=== PATIENT | female | born 1990 | race Caucasian/White ===

== ENCOUNTER 2024-01-29 13:52 | Outpatient (AMB) | payer OTHER, SELFPAY ==
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
[2024-01-29 14:15] VITALS: BP 108/70; PULSE 65; RESP 14; O2SAT 99; BMI 25.8
== END 2024-01-29 15:04 | disposition home or self-care (01) ==
PROVIDERS: PCP Physician Assistant Medical; Visit Provider Physician Assistant Medical
DX: Z00.00 Encounter for general adult medical examination without abnormal findings (principal)

== ENCOUNTER 2024-01-29 14:56 | Outpatient (REF) | payer OTHER, SELFPAY ==
[2024-01-29 18:20] LABS: MANUAL DIFF FLAG NO
[2024-01-29 18:22] LABS: Basophils Absolute Auto 0.1 X10*3/uL (0.0-0.2); Basophils Percent Auto 0.5 % (0-2); Eosinophils Absolute Auto 0.1 X10*3/uL (0.0-0.4); Eosinophils Percent Auto 0.5 % (0-4); Hematocrit 40.6 % (37.0-47.0); Hemoglobin 13.6 g/dl (12.0-16.0); Imm Gran Abs Auto 0.07 X10*3/uL (0.00-0.03); Imm Gran Pct Auto 0.5 % (0.0-0.4); Lymphocytes Absolute Auto 3.2 X10*3/uL (1.2-4.9); Lymphocytes Percent Auto 23.1 % (20-40); Mean Corpuscular HGB Conc 33.5 g/dl (31.0-35.0); Mean Corpuscular Hemoglobin 32.2 pg (27.0-33.0); Mean Corpuscular Volume 96.2 fL (80.0-98.0); Mean Platelet Volume 10.9 fL (9.4-12.3); Monocytes Percent Auto 7.2 % (2-11); Neutrophils Absolute Auto 9.3 x10*3/uL (2.0-8.3); Neutrophils Percent Auto 68.2 % (45-73); Platelet Count 317 X10*3/uL (160-400); Red Blood Count 4.22 X10*6/uL (4.20-5.50); Red Cell Distribution Width 11.8 % (11.0-16.0); White Blood Count 13.7 X10*3/uL (4.8-10.8)
[2024-01-29 18:41] LABS: Alanine Aminotransferase 16 U/L (0-31); Albumin Level 4.4 g/dL (3.5-5.0); Alkaline Phosphatase 50 U/L (39-117); Anion Gap 12 (12-20); Aspartate Amino Transferase 16 U/L (5-31); Bilirubin Total 0.4 mg/dL (0.0-1.0); Blood Urea Nitrogen 13 mg/dL (9-16); Calcium 9.6 mg/dL (8.4-10.2); Carbon Dioxide 26 mmol/L (22-29); Chloride 105 mmol/L (96-108); Cholesterol 134 mg/dL (<200); Estimated Glomerular Filt Rate > 60; Glucose Random 80 mg/dL (60-115); HDL Cholesterol 67 mg/dL (>40); LDL Cholesterol Calculated 52 mg/dL (<100); Potassium 3.8 mmol/L (3.3-5.1); Sodium 139 mmol/L (135-145); Total Protein 6.8 g/dL (6.5-8.0); Triglycerides 75 mg/dL (<150)
[2024-01-29 18:56] LABS: TSH reflex Free T4 1.18 uIU/mL (0.32-4.0)
== END 2024-01-29 14:57 | disposition home or self-care (01) ==
LOC: HO.WFDLDS 14:56
PROVIDERS: Visit Provider Physician Assistant Medical
DX: Z00.00 Encounter for general adult medical examination without abnormal findings (principal); Z13.6 Encounter for screening for cardiovascular disorders; K58.9 Irritable bowel syndrome, unspecified; G25.0 Essential tremor
CPT/HCPCS: 36415; 80053; 80061; 84443; 85025; 96127; 99385

== ENCOUNTER 2024-03-23 10:49 | Outpatient (REF) | payer OTHER, SELFPAY ==
[2024-03-23 14:20] LABS: MANUAL DIFF FLAG NO
[2024-03-23 14:25] LABS: Basophils Absolute Auto 0.1 X10*3/uL (0.0-0.2); Basophils Percent Auto 0.6 % (0-2); Eosinophils Percent Auto 0.2 % (0-4); Hematocrit 40.1 % (37.0-47.0); Hemoglobin 13.9 g/dl (12.0-16.0); Imm Gran Abs Auto 0.04 X10*3/uL (0.00-0.03); Imm Gran Pct Auto 0.3 % (0.0-0.4); Lymphocytes Absolute Auto 2.4 X10*3/uL (1.2-4.9); Lymphocytes Percent Auto 20.6 % (20-40); Mean Corpuscular HGB Conc 34.7 g/dl (31.0-35.0); Mean Corpuscular Hemoglobin 32.5 pg (27.0-33.0); Mean Corpuscular Volume 93.7 fL (80.0-98.0); Mean Platelet Volume 11.3 fL (9.4-12.3); Monocytes Absolute Auto 0.7 X10*3/uL (0.1-1.2); Monocytes Percent Auto 6.1 % (2-11); Neutrophils Absolute Auto 8.4 x10*3/uL (2.0-8.3); Neutrophils Percent Auto 72.2 % (45-73); Platelet Count 280 X10*3/uL (160-400); Red Blood Count 4.28 X10*6/uL (4.20-5.50); Red Cell Distribution Width 11.9 % (11.0-16.0); White Blood Count 11.7 X10*3/uL (4.8-10.8)
[2024-03-25 17:43] LABS: Rubeola IgG (Measles) >300.00 AU/mL
== END 2024-03-23 10:50 | disposition home or self-care (01) ==
LOC: HO.WFDLDS 10:49
PROVIDERS: Visit Provider Physician Assistant Medical
DX: Z01.84 Encounter for antibody response examination (principal); Z13.6 Encounter for screening for cardiovascular disorders; G25.0 Essential tremor; K58.9 Irritable bowel syndrome, unspecified; D72.829 Elevated white blood cell count, unspecified
CPT/HCPCS: 36415; 85025; 86735; 86762; 86765